=== PATIENT | male | born 1995 | race African-American/Black ===

== ENCOUNTER 2020-01-23 01:42 | Emergency (ER) | payer SELFPAY ==
[~2020-01-23] VITALS: Ht 182.9 cm; Wt 73.0 kg
[2020-01-23] MEDS ORDERED: LORAZEPAM 2MG/ML CPJ IV STA (02:05)
[2020-01-23] MEDS ORDERED: SODIUM CHLORIDE 0.9% 1,000 ML IV ONE (02:05)
[2020-01-23 02:34] LABS: BASOPHILS % 0.7 % (0.0-2.0); EOSINOPHILS % 2.2 % (0.0-5.0); HEMATOCRIT. 45.5 % (42.0-52.0); LYMPHOCYTES % 59.5 % (20.0-50.0); MEAN CORPUSCULAR HEMOGLOBIN 32.4 pg (28.0-32.0); MEAN CORPUSCULAR VOLUME 92.2 fL (80.0-94.0); MONOCYTES % 4.9 % (2.0-8.0); NEUTROPHILS % 32.7 % (40.0-76.0); PLATELET 252 x1000/uL (130-400); RED BLOOD CELL COUNT 4.94 mill/uL (4.7-6.1); RED CELL DISTRIBUTION WIDTH 12.3 % (11.6-14.6)
[2020-01-23 02:37] LABS: CHLORIDE 110 mEq/L (98-107)
[2020-01-23 02:41] LABS: ETHANOL BLOOD < 10 mg/dL
[2020-01-23] MEDS ORDERED: POTASSIUM CHLORIDE 20MEQ TABLET SR PO ONE (02:45)
[2020-01-23] MEDS ORDERED: MAGNESIUM 1 G PREMIX 100 ML IV ONE (02:45)
[2020-01-23] MEDS ORDERED: KCL 20MEQ/100ML PREMIX 100 ML IV ONE (02:45)
[2020-01-23 04:25] LABS: CANNABINOID URINE SCREEN PRESUMTIVE POSITIVE (NEGATIVE); METHADONE URINE SCREEN NEGATIVE (NEGATIVE); OPIATES URINE SCREEN NEGATIVE (NEGATIVE); PHENCYCLIDINE URINE SCREEN NEGATIVE (NEGATIVE)
[2020-01-23 04:26] LABS: *AMPHETAMINES SCREEN URINE NEGATIVE (NEGATIVE); *BARBITURATES SCREEN URINE NEGATIVE (NEGATIVE); *BENZODIAZEPINES SCREEN URINE NEGATIVE (NEGATIVE); *COCAINE SCREEN URINE NEGATIVE (NEGATIVE)
[2020-01-23 06:30] VITALS: BP 107/58
== END 2020-01-23 07:55 | disposition home or self-care (01) ==
LOC: ER 01:42
DX: F12.10 Cannabis abuse, uncomplicated (principal); E87.6 Hypokalemia; R00.0 Tachycardia, unspecified
CPT/HCPCS: 36415; 80053; 80305; 80320; 85025; 93005; 96365; 96366; 96367; 96375; 99284; J2060; J3475; J3480; J7030; G0480